=== PATIENT | male | born 1985 | race Caucasian/White ===

== ENCOUNTER 2017-11-20 00:20 | Observation (INO) ==
[2017-11-20] MEDS ORDERED: GI COCKTAIL PO STA (00:41)
--- NOTE | 2017-11-20 00:45 | ED.PDOC ---
General ED Provider: Dr. LENORA TIMMONS Chief Complaint: Abdominal Pain Stated Complaint: started with abdominal pain, upper part of the belly. sharp shooting type os pain. nausea no vomiting Time Seen by Physician: 01:44 Mode of Arrival: Walk-In Information Source: Patient, Family Primary Care Provider: SANA DICKERSON Nursing and Triage Documentation Reviewed and Agree: Yes Reviewed sepsis parameters & appropriate labs ordered?: No System Inflammatory Response Syndrome: Not Applicable Sepsis Protocol: For patient's 13 years and over: Temp is 96.8 and below OR 101 and greater Pulse >90 BPM Resp >20/minute Acutely Altered Mental Status Are patient's symptoms suggestive of a new infection, such as: -Pneumonia -Skin, Soft Tissue -Endocarditis -UTI -Bone, Joint Infection -Implantable Device -Acute Abdominal Infection -Wound Infection -Meningitis -Blood Stream Catheter Infection -Unknown GI Complaint Exam - Abdominal Pain Complaint/Exam Onset: Sudden Symptoms Are: Still present Timing: Constant Initial Severity: Severe Current Severity: Severe Location of Pain: LUQ, LLQ, Epigastric Radiates To: Reports: Flank Character: Reports: Dull, Aching, Throbbing Aggravating: Reports: None Alleviating: Reports: None Associated Signs and Symptoms: Reports: Nausea. Denies: Diaphoresis, Fever, Cough, Chest pain, Dizziness, Back pain, Constipation, Blood in stool, Dysuria, Urinary frequency, Decreased urine output, Decreased appetite, Discharge, Vomiting, Diarrhea, Decreased activity AAA Risk Factors: Reports: None Cardiac Risk Factors: Reports: None Testicular Torsion Risk Factors: Reports: None Surgical Obstruction Risk Factors: Reports: None Related Surgical History: Reports: None Abdominal Findings: Present: None Differential Diagnoses: Pancreatitis, Renal Colic, GB, PUD Review of Systems - Review Of Systems Constitutional: Reports: No symptoms Eyes: Reports: No symptoms Ears, Nose, Mouth, Throat: Reports: No symptoms Respiratory: Reports: No symptoms Cardiac: Reports: No symptoms GI: Reports: Abdominal pain, Nausea : Reports: No symptoms Musculoskeletal: Reports: No symptoms Skin: Reports: No symptoms Neurological: Reports: No symptoms Endocrine: Reports: No symptoms Hematologic/Lymphatic: Reports: No symptoms All Other Systems: Reviewed and Negative Past Medical History - Past Medical History Previously Healthy: Yes Endocrine: Reports: None Cardiovascular: Reports: None Respiratory: Reports: None Hematological: Reports: None Gastrointestinal: Reports: None Genitourinary: Reports: None Neuro/Psych: Reports: None Musculoskeletal: Reports: None Cancer: Reports: None - Surgical History General Surgical History: Reports: None - Family History Family History: Reports: Unknown - Social History Smoking Status: Never smoker Hx Substance Use: No Alcohol Screening: None - Immunizations Tetanus Shot up to Date: Yes Physical Exam - Physical Exam Appearance: Ill-appearing, Obese Eyes: NAYELI, EOMI, Conjunctiva clear ENT: Ears normal, Nose normal, Oropharynx normal Respiratory: Airway patent, Breath sounds clear, Breath sounds equal, Respirations nonlabored Cardiovascular: RRR, Pulses normal, No rub, No murmur GI/: Soft, No masses, No Organomegaly, Tender, Bowel sounds hypoactive Musculoskeletal: Normal strength, ROM intact, No edema, No calf tenderness Skin: Warm, Dry, Normal color Neurological: Sensation intact, Motor intact, Reflexes intact, Cranial nerves intact, Alert, Oriented Psychiatric: Affect appropriate, Mood appropriate Interpretation - Radiology Interpretation Radiology Interpretation By: Radiologist Radiology Results: Positive Exam Interpreted: CT Scan Critical Care Note - Critical Care Note Total Time (mins): 15 Course - Course Hematology/Chemistry: 11/20/17 00:45 11/20/17 00:45 Orders, Labs, Meds: Lab Review 11/20/17 11/20/17 00:45 00:45 WBC 17.51 H RBC 5.18 Hgb 14.7 Hct 41.6 L MCV 80.3 MCH 28.4 MCHC 35.3 RDW Coeff of Alex 13.0 Plt Count 219 Immature Gran % (Auto) 0.3 Neut % (Auto) 72.5 Lymph % (Auto) 20.8 Mcdowell % (Auto) 5.7 Eos % (Auto) 0.5 Baso % (Auto) 0.2 Immature Gran # (Auto) 0.1 Neut # 12.7 H Lymph # 3.6 H Mcdowell # 1.0 Eos # 0.1 Baso # 0.0 Sodium 138 Potassium 4.1 Chloride 101 Carbon Dioxide 25 Anion Gap 16.1 BUN 16 Creatinine 0.96 Estimated GFR (MDRD) 90.00 BUN/Creatinine Ratio 16.66 Glucose 165 H Calcium 9.5 Total Bilirubin 0.5 AST 23 ALT 33 Alkaline Phosphatase 78 Total Protein 7.6 Albumin 4.1 Globulin 3.5 Albumin/Globulin Ratio 1.17 Amylase 59 Lipase 105 H Orders Category Date Time Status AMYLASE Stat LAB 11/20/17 00:45 Completed CBC W/ AUTO DIFF Stat LAB 11/20/17 00:45 Completed COMPREHENSIVE METABOLIC PANEL Stat LAB 11/20/17 00:45 Completed LIPASE Stat LAB 11/20/17 00:45 Completed UA [URINALYSIS C & S IF INDICATED] Stat LAB 11/20/17 00:44 Uncollected Mag-Al Plus//Lidocaine [Gi Cocktail] MEDS 11/20/17 00:41 Discontinued 30 ml PO ONCE STA Meperidine HCl/Pf [Demerol 25 mg/ml Vial] MEDS 11/20/17 00:41 Discontinued 25 mg IM ONCE STA Ondansetron HCl/Pf [Zofran 4 mg/2 ml] MEDS 11/20/17 00:41 Discontinued 4 mg IM ONCE STA CT ABDOMEN/PELVIS WO CONTRAST Stat RADS 11/20/17 00:41 Completed Medications Discontinued Medications Generic Name Dose Route Start Last Admin Trade Name Freq PRN Reason Stop Dose Admin Al Hydroxide/Mg Hydroxide 30 ml 11/20/17 00:41 11/20/17 00:53 Gi Cocktail PO 11/20/17 00:42 30 ml ONCE STA Administration Meperidine HCl 25 mg 11/20/17 00:41 11/20/17 01:21 Demerol 25 Mg/Ml Vial IM 11/20/17 00:42 Not Given ONCE STA Ondansetron HCl 4 mg 11/20/17 00:41 11/20/17 01:21 Zofran 4 Mg/2 Ml IM 11/20/17 00:42 Not Given ONCE STA Vital Signs: Temp Pulse Resp BP Pulse Ox 11/20/17 00:21 98.9 F 89 18 173/96 H 96 Departure - Departure Time of Disposition: 01:47 Disposition: ADMITTED INPATIENT Discharge Problem: Abdominal pain Pancreatitis Qualifiers: Chronicity: acute Pancreatitis type: idiopathic Acute pancreatitis complication : no infection or necrosis Qualified Code(s): K85.00 - Idiopathic acute pancreatitis without necrosis or infection Instructions: Pancreatitis (ED) Condition: Stable Pt referred to PMD for follow-up: Yes IPMP verified?: No Allergies/Adverse Reactions: Allergies No Known Allergies Allergy (Verified 11/20/17 00:23) Home Medications: Ambulatory Orders Fluoxetine HCl [Prozac] 20 mg PO DAILY 08/27/16 Disposition Discussed With: Patient, Family
[2017-11-20] MEDS: ZOFRAN 4 MG/2 ML IM STA ×2 (00:53→01:21)
[2017-11-20] MEDS: DEMEROL 25 MG/ML VIAL IM STA ×2 (00:54→01:21)
--- NOTE | 2017-11-20 01:42 | CT ---
Exam: CT of the abdomen and pelvis without contrast History: Left flank pain Technique: [address] of the abdomen and pelvis without intravascular contrast FINDINGS: The lung bases are clear. No significant liver abnormality. The adrenals, pancreas and spl een are unremarkable. The stomach and hiatus are unremarkable.The appendix is normal. Kidneys and pro ximal collecting system are unremarkable. Trace fluid of the retroperitoneum on the left in the anter ior inter fascial space. Scattered left colonic diverticulosis. Vascular structures appear normal b y noncontrast CT. Colonic diverticulosis of the sigmoid. No pelvic fat inflammation. No free pelvic fluid. Normal pe lvic genitourinary structures. Impression: 1. Trace retroperitoneal inflammation of the left most likely mild pancreatitis.
[2017-11-20] MEDS ORDERED: DEMEROL 25 MG/ML VIAL IVP PRN (01:49)
[2017-11-20] MEDS ORDERED: ZOFRAN 4 MG/2 ML IM SCH (02:00)
[2017-11-20] MEDS: SODIUM CHLORIDE 1,000 ML IV SCH ×3 (02:11→17:48)
[2017-11-20] MEDS: PROTONIX IV IVP SCH ×2 (02:21→08:28)
[2017-11-20 04:05] VITALS: BMI 38.6
[2017-11-20] MEDS ORDERED: ZOFRAN 4 MG/2 ML ONE (05:01)
[2017-11-20] MEDS ORDERED: ZOFRAN 4 MG/2 ML IV SCH (05:04)
[2017-11-20] MEDS: ZOFRAN 4 MG/2 ML IV SCH ×2 (05:07→10:48)
[2017-11-20] MEDS: PROZAC PO SCH (08:30)
[2017-11-20] MEDS: LOVENOX SUBCUT SCH (08:31)
[2017-11-20] MEDS ORDERED: ZOFRAN 4 MG/2 ML IV PRN (10:47)
[2017-11-20] MEDS ORDERED: TYLENOL PO STA (20:36)
[2017-11-21] MEDS: SODIUM CHLORIDE 1,000 ML IV SCH ×2 (03:10→06:32)
[2017-11-21] MEDS: PROZAC PO SCH (08:38)
[2017-11-21] MEDS: PROTONIX IV IVP SCH (08:38)
[2017-11-21] MEDS: LOVENOX SUBCUT SCH (09:14)
[2017-11-21 09:52] VITALS: BP 139/74; TEMP 98
--- NOTE | 2017-12-23 15:10 | DS ---
DATE OF SERVICE: 11/21/17 FINAL DIAGNOSIS: 1. ACUTE PANCREATITIS 2. HISTORY OF IRRITABLE BOWEL SYNDROME 3. HISTORY OF TONSILLECTOMY DISCHARGE INSTRUCTIONS: 1. Discharge the patient home. 2. Protonix 40 mg p.o. daily. 3. Soft diet - no high protein rich diet or fatty rich diet for at least one more week. 4. Ultrasound of the gallbladder, right upper quadrant as outpatient. 5. Followup with Tessa Mcdaniel as scheduled. MEDICATIONS AT DISCHARGE: Prozac 20 mg p.o. daily NEW PRESCRIPTIONS: None DIET INSTRUCTIONS: Soft diet. ACTIVITY: As patient tolerates. SMOKING: Never a smoker DISEASE SPECIFIC EDUCATION: Pancreatitis and recurrence of pancreatitis discussed and verbalized understanding. Soft diet HOSPITAL COURSE: This patient came to the emergency room with abdominal pain, left-sided radiating to the back and lower flank and nausea. The patient came to the emergency room. White count 17,000. Lipase was 105. CT scan of the abdomen and pelvis showed mild pancreatitis. At that time he was admitted to the hospital, started on IV fluids, Demerol and Zofran. The Demerol was helping the pain. By morning, the patient's pain was better, started passing gas. He was up and about. Clear liquids were started. He was able to tolerate this well. Today, we started soft diet tolerating this well. He did not have any abdominal pain, nausea or vomiting. At that time, the patient was discharged home. The patient definitely needs right upper quadrant ultrasound to evaluate for gallstones as reason for pancreatitis. CT scan did show mild pancreatitis with noncontrast enhancing CT scan. TIME SPENT: MORE THAN 65 MINUTES MTDD
--- NOTE | 2017-12-24 10:42 | PN ---
DATE OF SERVICE: 11/20/17 SUBJECTIVE: The patient was admitted yesterday for acute pancreatitis. CT of the abdomen showed the pancreatitis and did not show any cholelithiasis. The pain is somewhat better. He is passing some gas. REVIEW OF SYSTEMS: CONSTITUTIONAL: No fever, no chills. HEENT: Normal. ENDOCRINE: No weight gain, no weight loss. CVS: No angina symptoms. No CHF symptoms. No palpitations. No atypical chest pain for CAD. No shortness of breath. No PND, no orthopnea. RESPIRATORY: No cough, no hemoptysis. GI: No nausea, no vomiting. Abdominal pain. : No hematuria. No polyuria. MUSCULOSKELETAL: No joint swelling. PSYCHIATRIC: Not anxious. No depression. No suicidal thoughts. No homicidal thoughts. SKIN: Intact. No rash. PHYSICAL EXAMINATION: V/S: Blood pressure 139/81, respiratory rate 18, heart rate 93, temperature 98.1 , saturation 96. HEENT: Normocephalic, atraumatic. Mucosa dry. NECK: Supple. No JVD, no carotid bruit. No lymphadenopathy. LUNGS: Decreased and clear. No rales or rhonchi. HEART: S1, S2 normal. No S3. No murmur, gallop or regurgitation. ABDOMEN: Left upper quadrant tenderness is still present. Bowel sounds active. No rigidity. No rebound or guarding. No CVA tenderness. EXTREMITIES: No pedal edema. No clubbing or cyanosis MUSCULOSKELETAL: No joint swelling. NEUROLOGIC: Awake, alert, oriented times three. No focal deficit. LYMPHATIC: No lymph nodes palpable. SKIN: Intact. LABS: Sodium 138, potassium 3.9, chloride 103, bicarb 26, BUN 15, creatinine 0.85, glucose 144, white count 17.9, hemoglobin 14.3, hematocrit 40.2, platelet count 225. ASSESSMENT: 1. ACUTE PANCREATITIS 2. LEUKOCYTOSIS SECONDARY TO THE DEHYDRATION AND PANCREATITIS 3. HISTORY OF IRRITABLE BOWEL SYNDROME PLAN: 1. Clear liquid diet. 2. Demerol for the pain. 3. Out of bed to chair. 4. No anticoagulation, as the patient is ambulatory. TIME SPENT: More than 35 minutes MTDD
== END 2017-11-21 10:56 | disposition home or self-care (01) ==
LOC: ED 00:20 → INTOOBSV 03:13 → MEDSURG A 03:13
PROVIDERS: ADMIT Emergency Medicine; ATTEND Emergency Medicine
DX: K85.00 Idiopathic acute pancreatitis without necrosis or infection (principal); D72.829 Elevated white blood cell count, unspecified; E86.0 Dehydration; K58.9 Irritable bowel syndrome, unspecified; Z79.899 Other long term (current) drug therapy
CPT/HCPCS: 36415; 80053; 81001; 82150; 83690; 85025; 96361; 96374; 96375; 96376; 99284

== ENCOUNTER 2018-01-24 12:17 | Outpatient (CLI) ==
[2013-03-07 13:15] VITALS: TEMP 98
== END 2018-01-24 12:18 | disposition home or self-care (01) ==
LOC: FCC-LAB 12:17
PROVIDERS: ATTEND Family Medicine
DX: D72.829 Elevated white blood cell count, unspecified (principal); E78.1 Pure hyperglyceridemia; Z87.19 Personal history of other diseases of the digestive system
CPT/HCPCS: 36415; 80053; 80061; 85025

== ENCOUNTER 2018-10-31 14:46 | Outpatient (CLI) ==
[2013-03-07 13:15] VITALS: TEMP 98
--- NOTE | 2018-10-31 15:59 | US ---
EXAM: Scrotal ultrasound. History: Left-sided testicular pain and swelling. Technique: Multiple sonographic images through the scrotum were obtained. Color duplex Doppler was used to interrogate vascular flow. Findings: The right testicle measures 4.2 cm x 2.0 cm x 3.7 cm. Blood flow was documented within the right escobar ticle. No right intratesticular masses. Right epididymis is not hyperemic. The left testicle measures 4.9 cm x 2.0 cm x 3.6 cm. There are two large complicated collections of fluid with floating debris within the left epididymis with the largest measuring 3.3 cm. The adjacent left epididymis is hyperemic. No left intratesticular masses. Blood flow was documented within the left testicle. No hydroceles and no varicoceles. Impression: 1. Large complicated fluid collections within the left epididymis could represent epididymal cysts b ut cannot exclude infected fluid collections. 2. Underlying left epididymitis is suspected
== END 2018-10-31 14:47 | disposition home or self-care (01) ==
LOC: RAD 14:46
PROVIDERS: ATTEND Family Medicine
DX: N45.1 Epididymitis (principal); N50.3 Cyst of epididymis

== ENCOUNTER 2019-02-06 15:03 | Outpatient (CLI) ==
[2013-03-07 13:15] VITALS: TEMP 98
== END 2019-02-06 15:04 | disposition home or self-care (01) ==
LOC: RHC-LAB 15:03 → FCC-LAB 15:04
PROVIDERS: ATTEND Family Medicine
DX: Z00.00 Encounter for general adult medical examination without abnormal findings (principal); M79.89 Other specified soft tissue disorders
CPT/HCPCS: 36415; 80053; 80061; 85025; 85651; 86038; 86430